=== PATIENT | female | born 1970 | race Caucasian/White ===

== ENCOUNTER → 2017-06-18 | Outpatient (CLI) | payer BC | LOC: MC.RAD 13:45 | DX: Z12.31 Encounter for screening mammogram for malignant neoplasm of breast (principal) ==

== ENCOUNTER → 2018-06-01 | Outpatient (CLI) | payer BC | LOC: COL.RAD 06:56 | DX: K63.89 Other specified diseases of intestine (principal); K59.00 Constipation, unspecified; R19.7 Diarrhea, unspecified; R10.9 Unspecified abdominal pain | CPT/HCPCS: A9541 ==

== ENCOUNTER → 2018-08-19 | Outpatient (CLI) | payer BC | LOC: MC.RAD 13:28 | DX: Z12.31 Encounter for screening mammogram for malignant neoplasm of breast (principal) ==

== ENCOUNTER 2019-03-16 20:49 | Emergency (ER) | payer BC ==
[~2019-03-16] VITALS: Ht 180.3 cm; Wt 71.4 kg
[2019-03-16 21:10] VITALS: BP 134/78; TEMP 97.9
[2019-03-16] MEDS ORDERED: PROBIOTIC FORMU1 CAP PO (21:58)
[2019-03-16] MEDS ORDERED: LEXAPRO 5MG5 MG PO (21:58)
[2019-03-16] MEDS ORDERED: MULTI VITAMINS1 TAB PO (21:59)
[2019-03-16] MEDS ORDERED: MAGNESIUM CHELA27 MG PO (21:59)
[2019-03-16] MEDS ORDERED: FISH OIL1000 MG PO (21:59)
[2019-03-16] MEDS ORDERED: NORCO 325 MG-51 TAB PO (23:24)
[2019-03-17 00:27] VITALS: PULSE 84
== END 2019-03-17 | disposition home or self-care (01) ==
LOC: COL.ER 20:49
DX: S62.397A Other fracture of fifth metacarpal bone, left hand, initial encounter for closed fracture (principal); S80.211A Abrasion, right knee, initial encounter; Z90.710 Acquired absence of both cervix and uterus; X50.1XXA Overexertion from prolonged static or awkward postures, initial encounter; W19.XXXA Unspecified fall, initial encounter; Y93.73 Activity, racquet and hand sports

== ENCOUNTER → 2019-08-22 | Outpatient (CLI) | payer BC ==
[~2019-08-22] MED LIST: FISH OIL1000 MG PO; LEXAPRO 5MG5 MG PO; MAGNESIUM CHELA27 MG PO; MULTI VITAMINS1 TAB PO; NORCO 325 MG-51 TAB PO; PROBIOTIC FORMU1 CAP PO
== END ==
LOC: MC.RAD 13:00
DX: Z12.31 Encounter for screening mammogram for malignant neoplasm of breast (principal); N64.89 Other specified disorders of breast

== ENCOUNTER → 2019-08-29 | Outpatient (CLI) | payer BC | LOC: MC.RAD 13:00 | DX: N60.02 Solitary cyst of left breast (principal) | CPT/HCPCS: G0279 ==

== ENCOUNTER → 2020-02-29 | Outpatient (CLI) | payer BC | LOC: MC.RAD 14:03 | DX: R92.2 Inconclusive mammogram (principal) | CPT/HCPCS: G0279 ==

== ENCOUNTER → 2020-08-23 | Outpatient (CLI) | payer BC | LOC: MC.RAD 13:22 | DX: Z12.31 Encounter for screening mammogram for malignant neoplasm of breast (principal) ==

== ENCOUNTER 2021-07-24 21:55 | Emergency (ER) | payer BC ==
[~2021-07-24] VITALS: Ht 180.3 cm; Wt 74.1 kg
[2021-07-24 22:04] VITALS: TEMP 97.6
[2021-07-24 22:51] LABS: HEMATOCRIT 41.1 % (37.0-47.0); HEMOGLOBIN 13.7 g/dl (12.5-16.0); MEAN CELL VOLUME 87 fl (80.0-100.0); MEAN CORPUSCULAR HEMOGLOBIN 29 pg (27.0-31.0); MEAN CORPUSCULAR HGB CONC 33 g/dl (33.0-37.0); PLATELET COUNT 244 K/mm3 (130-400); RED BLOOD COUNT 4.75 M/mm3 (4.10-5.30); REDCELL DISTRIBUTION WIDTH-CV 12.2 % (11.5-14.5)
[2021-07-24 23:20] LABS: BILIRUBIN,TOTAL 0.8 mg/dL (0.2-1.2); CALCIUM 9.4 mg/dL (8.4-10.2); CREATININE, serum 0.73 mg/dL (0.57-1.11); POTASSIUM 4.1 mmol/L (3.5-4.5); TOTAL PROTEIN 7.1 gm/dL (6.2-8.1)
[2021-07-24 23:47] LABS: BAND 11 % (0-10); LYMPHOCYTE 2 % (20.0-51.0); NEUTROPHILS 82 % (42.0-75.2)
[2021-07-24 23:48] LABS: PLATELET ESTIMATE NORMAL (NORMAL)
[2021-07-25 00:15] VITALS: BP 133/81; PULSE 103
== END 2021-07-25 00:15 | disposition home or self-care (01) ==
LOC: COL.ER 21:55
PROVIDERS: Nurse Practitioner
DX: M96.89 Other intraoperative and postprocedural complications and disorders of the musculoskeletal system (principal); R11.2 Nausea with vomiting, unspecified
CPT/HCPCS: J2550; J7030

== ENCOUNTER → 2021-08-26 | Outpatient (CLI) | payer BC | LOC: MC.RAD 13:00 | DX: Z12.31 Encounter for screening mammogram for malignant neoplasm of breast (principal) ==

== ENCOUNTER → 2023-09-03 | Outpatient (CLI) | payer BC | LOC: MC.RAD 13:27 | DX: Z12.31 Encounter for screening mammogram for malignant neoplasm of breast (principal); N64.89 Other specified disorders of breast ==

== ENCOUNTER → 2023-09-14 | Outpatient (CLI) | payer BC | LOC: MC.RAD 12:52 | DX: N64.89 Other specified disorders of breast (principal) ==